=== PATIENT | female | born 1970 | race Caucasian/White ===

== ENCOUNTER 2017-02-14 05:07 | Emergency (ER) | payer OTHER ==
--- NOTE | 2017-02-14 06:50 | ER ---
ADMIT: 02/14/2017 RM/LOC: ER [facility] MR#: [id number] [address] [facility] [id number] [place], [place] [id number] YANELI ALEMAN [address] [place] [address] CE[facility] Emergency Room Report SEX: F AGE: 47 : 1970 DATE: 02/14/2017 The patient is a 47-year-old female with asthma, bipolar, and essential tremor, complains of asthma attack. Took albuterol rescue inhaler at work. Exam remarkable for nontoxic, afebrile female, in no respiratory distress. Refused prednisone in department due to expense. Home with prednisone 40 mg daily x5 days and albuterol MDI as needed. Return to work tomorrow. Vick White MD/ kai JOB #: [id number] CC: Vick White MD, Attending Physician Carlito Alcaraz MD, Family Physician Carlito Alcaraz MD
== END 2017-02-14 05:40 | disposition home or self-care (01) ==
LOC: ER 05:07
DX: J45.909 Unspecified asthma, uncomplicated (principal); F31.9 Bipolar disorder, unspecified; Z88.5 Allergy status to narcotic agent; Z79.899 Other long term (current) drug therapy

== ENCOUNTER → 2017-04-01 | Outpatient (CLI) | payer BC ==
--- NOTE | ~2017-04-01 | ECH ---
Transthoracic Echocardiography Report (TTE) Demographics Patient Name YANELI ALEMAN Date of Study 04/01/2017 Patient Number [id number] Visit Number [id number] Date of 1970 Room Number Accession Number [id number] Gender Female Age 47 year(s) Referring Flavio Oreilly MD Associate Professor Of Anthropology Gwen Mckinney [facility] Physician Kieran Esteban MD Physician Interpreting Efra HERNANDEZ Photograph Enlarger Physician [place] Supervising Ordering Physician Flavio Oreilly MD, MD/MLP Nurse [employer] Agent Conclusions Contractility Score Summary Normal Left Ventricular contractility was noted. Summary Technically adequate exam. The estimated left ventricular ejection fraction is 60-65%. Right ventricular hypertrophy with right ventricular free wall 1.27cm. Normal right ventricular size and function. There is trivial aortic regurgitation by color Doppler. Trivial pulmonic valve regurgitation by color Doppler. Mild tricuspid regurgitation by color Doppler. Estimated pulmonary pressures within normal range. Recommendation The patient will be given the results of this study by the physician who ordered the exam. Procedure Type of Study TTE procedure:Echo Complete SF. Procedure Date Date: 04/01/2017 Start: 01:02 PM Technical Quality: Adequate visualization Indications:Shortness of breath. Appropriate Use Criteria: 9 Height: 65 inches Weight: 181 pounds BSA: 1.9 m Rhythm: Within normal limits HR: 64 bpm BP: 109/69 mmHg M-Mode/2D Measurements LV Diastolic Dimension: 4.61 cm LV Systolic Dimension: 3.42 cm LV Septum Diastolic: 0.96 cm LV PW Diastolic: 0.82 cm AO Root Dimension: 2.66 cm Cardiac Output: 4.2 l/min LA Dimension: 3.78 cm Cardiac Index: 2.21 l/min*m RV Diastolic Dimension: 3.45 cm LA volume index: 32 ml/m LVOT: 2.03 cm LVOT VTI: 20.29 cm RV Base: 2.9 cm LV Stroke volume: 65.64 ml RV Mid: 2.3 cm LV Stroke volume index: 34.55 ml/m RV Length: 6.3 cm TAPSE: 22 cm TDI-S': 12 cm/s Doppler Measurements AV Peak Velocity: 1 m/s MV Peak E-Wave: 0.97 m/s AV Peak Gradient: 4 mmHg MV Peak A-Wave: 0.58 m/s AV Mean Gradient: 2.48 mmHg MV E/A Ratio: 1.68 LVOT Peak Velocity: 0.96 m/s MV P1/2t: 52.1 msec AV Area (Continuity):2.5 cm MV Deceleration Time: 169.9 msec TR Velocity:2.09 m/s MV Area (PHT): 4.23 cm TR Gradient:17.47 mmHg PV Peak Velocity: 0.8 m/s Estimated RAP:3 mmHg PV Peak Gradient: 2.56 mmHg Estimated RVSP: 20 mmHg Estimated PASP: 20.47 mmHg RA Area: 12.36 cm Findings Left Ventricle Normal left ventricle size and function. Diastolic assessment reveals normal relaxation. Right Ventricle Right ventricular free wall 1.27cm. Normal right ventricular size and function. Left Atrium Normal left atrial size. Right Atrium Normal right atrial size. Mitral Valve Normal mitral valve structure and function. Mild mitral regurgitation by color Doppler. Aortic Valve Normal aortic valve structure and function. There is trivial aortic regurgitation by color Doppler. Tricuspid Valve Normal tricuspid valve structure and function. Mild tricuspid regurgitation by color Doppler. Estimated pulmonary pressures within normal range. Pulmonic Valve Normal pulmonic valve structure and function. Trivial pulmonic valve regurgitation by color Doppler. Pericardial Effusion No evidence of pericardial effusion. Miscellaneous Visualized portions of the aortic root and ascending aorta appear normal in size. Pleural Effusion No evidence of pleural effusion. Contractility Score LV regional wall motion:(0-Non visualized 1-Normal 2-Hypokinesis 3-Akinesis 4-Dyskinesis 5-Aneurysm) Signature
== END | disposition home or self-care (01) ==
LOC: CARD 12:37
DX: R06.00 Dyspnea, unspecified (principal); I51.7 Cardiomegaly; I35.1 Nonrheumatic aortic (valve) insufficiency